=== PATIENT | male | born 1935 | race Caucasian/White ===

== ENCOUNTER 2018-12-18 06:22 | Day surgery (SDC) | payer MEDICARE, OTHER ==
[~2018-12-18 06:22] MED LIST: Acetaminophen TAB* 325 MG PO PRN
[2018-12-18] MEDS ORDERED: fentaNYL* 50 MCG/ML 2 ML VIAL (100 MCG VIAL) ONE (07:05)
[2018-12-18] MEDS ORDERED: Midazolam* 1 MG/ML 2 ML VIAL (2 MG) ONE (07:05)
[2018-12-18 08:33] VITALS: BP 147/68
--- NOTE | 2018-12-18 09:14 | OP ---
DATE OF OPERATION: 12/18/18 [facility] DATE OF : 33 SURGEON: Sesar Joseph MD. ANESTHESIA: Monitored anesthesia care. PREOPERATIVE DIAGNOSIS: Cataract, right eye. POSTOPERATIVE DIAGNOSIS: Cataract, right eye with floppy iris syndrome. OPERATIVE PROCEDURE: Extracapsular cataract extraction of the right eye with intraocular lens implant. ANESTHESIA: Monitored anesthesia care. IMPLANT: SN60WF 19.0 Diopter lens to the right eye. COMPLICATIONS: None. DESCRIPTION OF PROCEDURE: The patient was given phenylephrine 2.5% and cyclopentolate 1% eye drops to the operative eye in the preoperative area. The patient was taken to the operating room, where a time-out was taken to identify the correct patient, site and side of surgery. The patient's right eye was prepped and draped in the usual sterile fashion of 5% Betadine. A second time- out was taken to verify the correct patient, side and site of surgery, and correct lens implant. A lid speculum was placed to the right eye. A 1 mm paracentesis blade was used to make a clear corneal incision in the superotemporal position. Preservative-free 1% lidocaine was injected in the anterior chamber. DisCoVisc was then injected into the anterior chamber. A 2.75 mm keratome blade was used to make a triplanar incision at the inferotemporal position. A Malyugin ring was then inserted due to poor pupil dilation and floppy iris syndrome. A cystotome initiated a capsulorrhexis, which was completed with Utrata forceps in a continuous and curvilinear manner. Hydrodissection of the lens was performed with BSS on a cannula. The lens could be spun in a capsular bag. The phacoemulsification handpiece was used with a [id number]-jqc-[id number] technique to remove the nucleus with 17.9 CDE. The I/ A handpiece then removed the residual cortical lens material. ProVisc was injected to inflate the capsular bag. The ORA system was used to then calibrate the correct lens placement. The planned SN60WF 19.0 diopter lens was then injected in the capsular bag. The Malyugin ring was then removed from the anterior chamber and then the residual ProVisc was removed from the eye with the I/A handpiece. The corneal incisions were hydrated and no leaks occurred at physiologic pressure around 20 mmHg per palpation. The lid speculum was removed and drapes were removed. Maxitrol ointment was placed to the surface of the operative eye. An adhesive patch and shield was then placed in the operative eye. The patient was taken to the postoperative area in stable condition. [id number]/[facility] #: [id number] MTDMartinez
[2018-12-18] MEDS ORDERED: Lidocaine 1%* 5 ML VIAL ONE (10:38)
[2018-12-18] MEDS ORDERED: Ketorolac 0.5% OPHTH (NF) 0.5 % 5 ML BTL ONE (10:38)
[2018-12-18] MEDS ORDERED: Phenylephrine 2.5% OPTH.SOL* 2 ML BTL ONE (10:38)
[2018-12-18] MEDS ORDERED: acetaZOLAMIDE TAB* 250 MG ONE (10:38)
[2018-12-18] MEDS ORDERED: Tetracaine 0.5% OPTH.SOL 4 ML* 1 DROP BTL ONE (10:38)
[2018-12-18] MEDS ORDERED: Neomycin/Polymy/Dex OPHTH.OIN* 3.5 GM ONE (10:38)
[2018-12-18] MEDS ORDERED: Tropicamide 1% OPTH.SOL* BTL ONE (10:38)
[2018-12-18] MEDS ORDERED: Povidone Iodine 5% OPTH* 30 ML BTL ONE (10:38)
[2018-12-18] MEDS ORDERED: Cyclopentolate 1% OPTH.SOL* 2 ML BTL ONE (10:38)
== END 2018-12-18 08:51 | disposition home or self-care (01) ==
LOC: OREAST 06:22
PROVIDERS: ATTEND Student in an Organized Health Care Education/Training Program
DX: H25.811 Combined forms of age-related cataract, right eye (principal); H21.81 Floppy iris syndrome; H43.813 Vitreous degeneration, bilateral; Z87.891 Personal history of nicotine dependence; C61 Malignant neoplasm of prostate; I10 Essential (primary) hypertension; K21.9 Gastro-esophageal reflux disease without esophagitis
CPT/HCPCS: A9270-GY; J2250; J3010; V2632

== ENCOUNTER 2019-01-01 08:55 | Day surgery (SDC) | payer MEDICARE, OTHER ==
[2019-01-01] MEDS ORDERED: Midazolam* 1 MG/ML 2 ML VIAL (2 MG) ONE (10:55)
[2019-01-01 11:35] VITALS: BP 143/67
--- NOTE | 2019-01-01 12:41 | OP ---
DATE OF OPERATION: 01/01/19 - [facility] DATE OF : 33 SURGEON: Sesar Joseph MD ANESTHESIA: Monitored anesthesia care. PREOPERATIVE DIAGNOSIS: Cataract, left eye with floppy iris syndrome. POSTOPERATIVE DIAGNOSIS: Cataract, left eye with floppy iris syndrome. OPERATIVE PROCEDURE: Extracapsular cataract extraction of the left eye with intraocular lens implant. IMPLANTS: SN60WF 20.0 diopter lens to the left eye. COMPLICATIONS: None. DESCRIPTION OF PROCEDURE: The patient was given phenylephrine 2.5% and cyclopentolate 1% eye drops to the operative eye in the preoperative area. The patient was taken to the operating room where a time-out was taken to identify the correct patient, site, and side of surgery. The patient's left eye was prepped and draped in the usual sterile fashion with 5% Betadine. A second time -out was taken to verify the correct patient, site and side of surgery and correct lens implant. A lid speculum was placed to the left eye. A 1-mm paracentesis blade was used to make a clear corneal incision in the inferotemporal position. Preservative-free 1% lidocaine was injected in the anterior chamber. DisCoVisc was then injected in the anterior chamber. A 2.75 mm keratome blade was used to make a triplanar incision at the superotemporal position. A Malyugin ring was then inserted due to poor pupil dilation and floppy iris syndrome. A cystotome initiated and a capsulorrhexis, which was completed with Utrata forceps in a continuous and curvilinear manner. Hydrodissection of the lens was performed with BSS on a cannula. The lens could be spun in a capsular bag. The phacoemulsification handpiece was used with a divide and conquer technique to remove the nucleus with 17.46 CDE. The I/A handpiece then removed the residual cortical lens material. DisCoVisc was then injected to inflate the capsular bag. The planned SN60WF 20.0 diopter lens was then injected in the capsular bag. The Malyugin ring was then removed from the anterior chamber and the residual DisCoVisc was removed with I/A handpiece. The corneal incisions were hydrated and no leaks occurred at physiologic pressure around 20 mmHg per palpation. The lid speculum was removed and drapes removed. Maxitrol ointment was placed to the surface of the operative eye. An adhesive patch and shield was then placed on the operative eye. The patient was taken to the postoperative area in stable condition. [id number]/[facility] #: [id number] MTDD
[2019-01-01] MEDS ORDERED: Tetracaine 0.5% OPTH.SOL 4 ML* 1 DROP BTL ONE (13:36)
[2019-01-01] MEDS ORDERED: Lidocaine 1%* 5 ML VIAL ONE (13:36)
[2019-01-01] MEDS ORDERED: acetaZOLAMIDE TAB* 250 MG ONE (13:36)
[2019-01-01] MEDS ORDERED: Povidone Iodine 5% OPTH* 30 ML BTL ONE (13:36)
[2019-01-01] MEDS ORDERED: Phenylephrine OPHTH SOL 2.5%* 2 ML ONE (13:36)
[2019-01-01] MEDS ORDERED: Neomycin/Polymy/Dex OPHTH.OIN* 3.5 GM ONE (13:36)
[2019-01-01] MEDS ORDERED: Ketorolac 0.5% OPHTH (NF) 0.5 % 5 ML BTL ONE (13:36)
[2019-01-01] MEDS ORDERED: Tropicamide 1% OPTH.SOL* BTL ONE (13:36)
[2019-01-01] MEDS ORDERED: Cyclopentolate 1% OPTH.SOL* 2 ML BTL ONE (13:36)
== END 2019-01-01 11:42 | disposition home or self-care (01) ==
LOC: OREAST 08:55
PROVIDERS: ATTEND Student in an Organized Health Care Education/Training Program
DX: H25.812 Combined forms of age-related cataract, left eye (principal); H43.813 Vitreous degeneration, bilateral; H21.81 Floppy iris syndrome; Z87.891 Personal history of nicotine dependence; I10 Essential (primary) hypertension; K21.9 Gastro-esophageal reflux disease without esophagitis
CPT/HCPCS: A9270-GY; J2250; V2632